=== PATIENT | male | born 1990 | race Caucasian/White ===

== ENCOUNTER 2019-10-27 08:27 | Emergency (ER) | payer OTHER, SELFPAY ==
--- NOTE | 2019-10-27 08:35 | ED.EYEPROB ---
HPI - Eye Problem General Chief complaint: Eye Problems Stated complaint: eye injury Time Seen by Provider: 10/27/19 08:42 Source: patient and RN notes reviewed Mode of arrival: ambulatory Limitations: no limitations History of Present Illness HPI Narrative: 28-year-old male presents with concern for right eye pain. Reports this morning his dog scratched his eye causing pain, it hurts to open his eye. Reports light sensitivity. Denies purulent discharge. chief complaint: eye pain Related Data Allergies Allergy/AdvReac Type Severity Reaction Status Date / Time No Known Allergies Allergy Verified 10/27/19 08:43 Review of Systems Review of Systems: Narrative: CONSTITUTIONAL: Denies malaise, chills, sweats, or fever. EYES: Reports right eye pain, redness ENT: Denies rhinorrhea, congestion, sinus pain, otalgia or sore throat. SKIN: Denies skin injury NEUROLOGIC: Denies headache. All systems reviewed & are unremarkable except as noted in HPI and below PMFSH Comments At time of signature, agree with nursing past medical, surgical, social and family history. There is no relevant family history pertinent to the presenting complaint Exam Narrative: Exam Narrative: GENERAL: Well-appearing, well-nourished, and in no acute distress. HEAD: Normocephalic, atraumatic. EYES: PERRLA, conjunctivae clear, and EOMI. No nystagmus. Sclera erythematous bilaterally, corneal abrasion noted in right eye, see note ENT: Nares clear. Mucous membranes moist. NECK: Supple. CHEST: No respiratory distress. Speaks in full sentences. HEART: Regular rate and rhythm. SKIN: Warm, dry, no rash. Skin intact NEURO: Alert and oriented x3. PSYCH: Normal mood and affect Course Course Emergency Course: Patient is aware of diagnosis, understands and agrees to treatment plan. Anticipatory guidance given. Patient agrees to follow-up as directed and is aware of reasons to seek care at the emergency department. Portions of this record may have been created with voice recognition software Vital Signs Vital signs: Vital Signs Temperature 98.9 F 10/27/19 08:40 Pulse Rate 52 L 10/27/19 08:40 Respiratory Rate 16 10/27/19 08:40 Blood Pressure 149/80 H 10/27/19 08:40 Pulse Oximetry 100 10/27/19 08:40 Temperature 98.9 F 10/27/19 08:40 Pulse Rate 52 L 10/27/19 08:40 Respiratory Rate 16 10/27/19 08:40 Blood Pressure 149/80 H 10/27/19 08:40 Pulse Oximetry 100 10/27/19 08:40 Reviewed. Pt has been instructed to follow up with his primary care provider within the next week regarding his elevated blood pressure today. MDM - Eye Problem MDM Narrative Medical decision making narrative: Consideration of the following conditions may be warranted for the presenting problem, they are not final diagnoses: Bacterial conjunctivitis, allergic conjunctivitis, viral conjunctivitis, foreign body, blepharitis, chalazion, hordeolum, corneal abrasion. Exam findings show no acute concerns or changes; patient is non-toxic appearing and is in no distress. Patient is appropriate for outpatient treatment and follow-up. Critical Care Time Critical Care Time Critical Care Time: No Discharge Plan Discharge Clinical Impression: Corneal abrasion Qualifiers: Encounter type: initial encounter Laterality: right Qualified Code(s): S05.01XA - Injury of conjunctiva and corneal abrasion without foreign body, right eye, initial encounter Patient Disposition: Home, Self-Care Condition: Stable Instructions: Corneal Abrasion (ED) Additional Instructions: Corneal abrasions will heal in 1-2 days. Keep your eye shut and wearing sunglasses or staying in low light to avoid light sensitivity. Do not touch or rub your eye or use a fabric patch ( pirate's patch ) You may take Tylenol or ibuprofen for pain. Do not use ketorolac eyedrops for more than 2 days. Use as directed. Use antibiotic drops as directed. Follow-up with PCP or mining professionals if conditio
[2019-10-27 08:40] VITALS: BP 149/80; PULSE 52; RESP 16; TEMP 37.2; O2SAT 100
== END 2019-10-27 09:00 | disposition home or self-care (01) ==
PROVIDERS: Emergency Provider Nurse Practitioner; PCP Student in an Organized Health Care Education/Training Program
DX: S05.01XA Injury of conjunctiva and corneal abrasion without foreign body, right eye, initial encounter (principal); W54.1XXA Struck by dog, initial encounter; R03.0 Elevated blood-pressure reading, without diagnosis of hypertension
CPT/HCPCS: 99213; A9270; G0463